=== PATIENT | male | born 1980 | race Caucasian/White ===

== ENCOUNTER 2021-12-18 18:05 | Emergency (ER) | payer OTHER ==
[~2021-12-18] VITALS: Ht 177.8 cm; Wt 65.2 kg
[2021-12-18] MEDS: diphenhydrAMINE HCL 25 MG CAPSULE PO ONE (18:43)
--- NOTE | 2021-12-18 18:43 | PHYS DOC ---
Past History Past Surgical History: Other Additional Past Surgical Histo: hernia repair Adult General Chief Complaint Chief Complaint: SKIN PROBLEM HPI HPI Patient is a 41-year-old male presenting to the emergency department for evaluation of 2 bite wounds 1 to his left tricep region and the other to his left chest wall. He says he thinks he was bit by a spider at night but he did not feel a prick or any pain and even now he is not feeling pain rather he says it is irritated and itchy. There is streaking present on both bites approximately 5 cm in length there is no hardening to the lesion but. There appears to be a raised wheal. He denies any other symptoms including no fevers chills abdominal pain nausea vomiting or other systemic symptoms. He is in no acute distress with normal vital signs. Review of Systems Review of Systems Constitutional: Denies fever or chills [] Respiratory: Denies cough or shortness of breath [] Cardiovascular: No additional information not addressed in HPI [] GI: Denies abdominal pain, nausea, vomiting, bloody stools or diarrhea [] Musculoskeletal: Denies back pain or joint pain [] Integument: Positive bite wounds with streaking Neurologic: Denies headache, focal weakness or sensory changes [] All other systems were reviewed and found to be within normal limits, except as documented in this note. Allergies Allergies Allergies Coded Allergies Type Severity Reaction Last Updated Verified No Known Drug Allergies 12/18/21 No Physical Exam Physical Exam Constitutional: Well developed, well nourished, no acute distress, non-toxic appearance. [] Cardiovascular:Heart rate regular rhythm, no murmur [] Lungs & Thorax: Bilateral breath sounds clear to auscultation [] Abdomen: Bowel sounds normal, soft, no tenderness, no masses, no pulsatile brian s. [] Skin: Insect bite wound to the left triceps with approximately 2 cm of surrounding erythema but no hardening or tenderness to palpation and there is approximate 5 cm streak extending proximally from the lesion. Another lesion w ith very similar appearance on the left lateral rib cage again with no induration hardening warmth or tenderness to palpation. Extremities: No tenderness, no cyanosis, no clubbing, ROM intact, no edema. [] Neurologic: Alert and oriented X 3, normal motor function, normal sensory function, no focal deficits noted. [] Current Patient Data Vital Signs Vital Signs Date Time Temp Pulse Resp B/P (MAP) Pulse Ox O2 Delivery O2 Flow Rate FiO2 12/18/21 18:15 97.6 58 18 133/80 (97) 97 EKG EKG [] Radiology/Procedures Radiology/Procedures [] Heart Score C/O Chest Pain: No Risk Factors: Risk Factors: DM, Current or recent (<one month) smoker, HTN, HLP, family history of CAD, obesity. Risk Scores: Risk Factors: DM, Current or recent (<one month) smoker, HTN, HLP, family history of CAD, obesity. Course & Med Decision Making Course & Med Decision Making I suspect that this is most likely an insect bite. It does not have the red- white and blue appearance of a brown recluse spider bite and his clinical history is not consistent with a black spider bite. Certainly there is no systemic toxicity at this time. He may have a secondary cellulitis that is early but appears to be more of a hypersensitivity reaction at this point. He is allergic to sulfa so I will start him on doxycycline. Patient was told to follow-up with his primary care provider in 2 days for recheck and come back to emergency department sooner with worsening pain fevers vomiting or other general concerns. Patient aware and agreeable with plan for discharge and verbalized understanding of the above instructions. Dragon Disclaimer Dragon Disclaimer This electronic medical record was generated, in whole or in part, using a voice recognition dictation system. Departure Departure: Impression: Primary Impression: Insect bite Additional Impression: Cellulitis Disposition: 01 HOME / SELF CARE / HOMELESS Condition: STABLE Referrals: YOKASTA SPAIN MD (PCP) Patient Instructions: Cellulitis, [id number] Additional Instructions: Take 25mg of benadryl for itching/irritation every 6 hours. Take 600mg of ibuprofen for pain every 6 hours. Follow with PCP in 2 days for recheck and come back to the ED with any concerns. Thank you! Scripts Doxycycline Hyclate (DOXYCYCLINE HYCLATE) 100 Mg Capsule 1 CAP PO BID, #13 CAP Prov: GRACE AVILA DO 12/18/21 Problem Qualifiers Primary Impression: Insect bite Encounter type: initial encounter Site of insect bite: upper arm Laterality: left Qualified Codes: S40.862A - Insect bite (nonvenomous) of left upper arm, initial encounter; W57.XXXA - Bitten or stung by nonvenomous insect and other nonvenomous arthropods, initial encounter Additional Impression: Cellulitis Site of cellulitis: extremity Site of cellulitis of extremity: upper extremity Laterality: left Qualified Codes: L03.114 - Cellulitis of left upper limb GRACE AVILA DO December 18, 2021 18:43
[2021-12-18] MEDS: DEXAMETHASONE 4 MG TABLET PO ONE (18:44)
[2021-12-18] MEDS: DOXYCYCLINE HYCLATE 100 MG TABLET PO ONE (18:44)
[2021-12-18] MEDS ORDERED: DOXY100C3 PO (18:54)
[2021-12-18 19:11] VITALS: BP 137/85
== END 2021-12-18 19:10 | disposition home or self-care (01) ==
LOC: ER 18:05
DX: S40.862A Insect bite (nonvenomous) of left upper arm, initial encounter (principal); L03.114 Cellulitis of left upper limb; W57.XXXA Bitten or stung by nonvenomous insect and other nonvenomous arthropods, initial encounter; Y93.89 Activity, other specified; Y92.89 Other specified places as the place of occurrence of the external cause; Y99.8 Other external cause status
CPT/HCPCS: 99284; J8540; Q0163